=== PATIENT | male | born 1985 | race African-American/Black ===

== ENCOUNTER 2017-04-19 15:11 | Emergency (ER) | payer OTHER ==
[~2017-04-19] VITALS: Ht 172.7 cm; Wt 90.9 kg
[~2017-04-19 15:11] MED LIST: ABILIFY5 MG PO; EFFEXOR 75M75 MG/TAB PO; FOCALIN2.5 MG PO; KLONOPIN 1MG1 MG PO; NITRO-DUR0.4 MG/PAT TD; PRILOSEC 20MG20 MG PO; RITALIN LA10 MG; RITALIN SR20 MG PO
[2017-04-19 15:17] VITALS: BP 133/67; TEMP 99
[2017-04-19] MEDS ORDERED: CONCERTA54 MG PO (15:52)
[2017-04-19 16:26] LABS: BASO % 0.2 % (0.0-2.0); EOS # 0.1 (0.0-0.7); EOS % 1.4 % (0-4.0); GRAN % 80.7 % (42.2-75.2); HEMOGLOBIN 13.9 g/dl (13.5-18.0); LYMPH # 1.2 (1.2-3.4); LYMPH % 11.7 % (20.0-51.0); MEAN CELL VOLUME 76 fl (80.0-100.0); MEAN CORPUSCULAR HEMOGLOBIN 24 pg (27.0-31.0); MEAN CORPUSCULAR HGB CONC 31 g/dl (33.0-37.0); MEAN PLATELET VOLUME 11.5 fl (7.4-10.4); MONO # 0.5 (0.1-0.6); MONO % 5.5 % (1.7-9.3); PLATELET COUNT 273 K/mm3 (130-400); RED BLOOD COUNT 5.92 M/mm3 (4.20-5.60); REDCELL DISTRIBUTION WIDTH-CV 14.4 % (11.5-14.5); WHITE BLOOD COUNT 9.9 K/mm3 (4.8-10.8)
[2017-04-19 16:26] LABS: PH 5 (5-8); SQUAMOUS EPITHELIAL None Seen /hpf; URINE APPEARANCE Clear; URINE BACTERIA None Seen /hpf; URINE BILIRUBIN Negative (NEGATIVE); URINE BLOOD Negative (NEGATIVE); URINE COLOR Yellow; URINE GLUCOSE Negative (NEGATIVE); URINE KETONE 1+ (NEGATIVE); URINE RBC 0-2 /hpf; URINE UROBILINOGEN >=4.0 mg/dL (NEGATIVE)
[2017-04-19 16:31] LABS: ADJUSTED CALCIUM 9.3 mg/dL (8.4-10.2); ALBUMIN 4.1 gm/dL (3.5-5.0); BILIRUBIN,TOTAL 0.6 mg/dL (0.0-1.0); CALCIUM 9.4 mg/dL (8.4-10.2); CREATININE, serum 1.01 mg/dL (0.66-1.25); POTASSIUM 3.8 mmol/L (3.4-5.0); TOTAL PROTEIN 7.2 gm/dL (6.4-8.2)
[2017-04-19] MEDS ORDERED: VOLTAREN 75 DR75 MG PO (17:14)
[2017-04-19 17:39] VITALS: PULSE 75
== END 2017-04-19 17:41 | disposition home or self-care (01) ==
LOC: COL.ER 15:11
PROVIDERS: Emergency Medicine
DX: R10.2 Pelvic and perineal pain (principal); F90.9 Attention-deficit hyperactivity disorder, unspecified type; Z98.890 Other specified postprocedural states
CPT/HCPCS: J0690; J1885; J7030

== ENCOUNTER 2017-12-11 13:35 | Emergency (ER) | payer OTHER ==
[~2017-12-11] VITALS: Ht 175.3 cm; Wt 95.5 kg
[~2017-12-11 13:35] MED LIST changes: +CONCERTA54 MG PO; +VOLTAREN 75 DR75 MG PO
[2017-12-11 13:37] VITALS: TEMP 97.5
[2017-12-11] MEDS ORDERED: DOXYCYCLINE HY100 MG PO (13:50)
[2017-12-11 14:04] LABS: BASO % 0.4 % (0.0-2.0); EOS # 0.1 (0.0-0.7); EOS % 1.6 % (0-4.0); GRAN # 6.1 (1.4-6.5); GRAN % 73.1 % (42.2-75.2); HEMATOCRIT 45.7 % (42.0-52.0); HEMOGLOBIN 14.5 g/dl (13.5-18.0); LYMPH # 1.4 (1.2-3.4); LYMPH % 16.8 % (20.0-51.0); MEAN CELL VOLUME 74 fl (80.0-100.0); MEAN CORPUSCULAR HEMOGLOBIN 23 pg (27.0-31.0); MEAN CORPUSCULAR HGB CONC 32 g/dl (33.0-37.0); MEAN PLATELET VOLUME 10.7 fl (7.4-10.4); MONO # 0.6 (0.1-0.6); PLATELET COUNT 231 K/mm3 (130-400); RED BLOOD COUNT 6.19 M/mm3 (4.20-5.60); REDCELL DISTRIBUTION WIDTH-CV 15.3 % (11.5-14.5)
[2017-12-11 14:17] LABS: ALANINE AMINOTRANSFERASE 50 U/L (21-72); ALBUMIN 4.2 gm/dL (3.5-5.0); ALKALINE PHOSPHATASE 82 U/L (50-136); ANION GAP 11 mmol/L (7-16); AST,SGOT 32 U/L (15-37); BILIRUBIN,TOTAL 0.6 mg/dL (0.0-1.0); BLOOD UREA NITROGEN 14 mg/dL (9-20); CALCIUM 9.6 mg/dL (8.4-10.2); CARBON DIOXIDE 28 mmol/L (22-30); CHLORIDE 103 mmol/L (98-107); CREATININE, serum 1.36 mg/dL (0.66-1.25); GLUCOSE 103 mg/dL (74-106); POTASSIUM 4.6 mmol/L (3.4-5.0); SODIUM 142 mmol/L (137-145); TOTAL PROTEIN 8.4 gm/dL (6.4-8.2)
[2017-12-11 14:23] LABS: ACETAMINOPHEN < 10 ug/mL (10-30); ALCOHOL(ethanol),MEDICAL < 10 mg/dL; SALICYLATE < 1.0 mg/dL
[2017-12-11 14:31] LABS: TRICYCLIC ANTIDEPRESS URINE NEGATIVE
[2017-12-11] MEDS ORDERED: RITALIN SR20 MG PO (16:30)
[2017-12-11] MEDS ORDERED: EFFEXOR 75M75 MG/TAB PO (16:30)
[2017-12-11] MEDS ORDERED: ABILIFY 10MG TA10 MG PO (16:31)
[2017-12-11 16:32] VITALS: BP 106/56; PULSE 72
[2017-12-11] MEDS ORDERED: CEPHALEXIN500 M1 PO (16:33)
== END 2017-12-11 16:49 | disposition home or self-care (01) ==
LOC: COL.ER 13:35
PROVIDERS: Emergency Medicine
DX: F32.9 Major depressive disorder, single episode, unspecified (principal); L02.415 Cutaneous abscess of right lower limb

== ENCOUNTER 2020-11-25 06:54 | Day surgery (SDC) | payer OTHER ==
[2020-11-25] VITALS (10 sets, daily range): BP systolic 91–113; BP diastolic 54–82; PULSE 64–82; TEMP 98.3
[~2020-11-25] VITALS: Ht 175.3 cm; Wt 97.1 kg
[~2020-11-25 06:54] MED LIST changes: +ABILIFY 10MG TA10 MG PO; +CEPHALEXIN500 M1 PO; +DOXYCYCLINE HY100 MG PO
[2020-11-25] MEDS ORDERED: FOCALIN XR40 MG PO (07:21)
[2020-11-25] MEDS ORDERED: FOCALIN10 MG PO (07:22)
[2020-11-25] MEDS ORDERED: EFFEXOR XR75 MG/CAP PO (07:22)
[2020-11-25] MEDS ORDERED: ABILIFY20 MG PO (07:22)
[2020-11-25 08:10] LABS: HEMATOCRIT 45.9 % (42.0-52.0); HEMOGLOBIN 14.2 g/dl (13.5-18.0); MEAN CELL VOLUME 75 fl (80.0-100.0); MEAN CORPUSCULAR HEMOGLOBIN 23 pg (27.0-31.0); MEAN CORPUSCULAR HGB CONC 31 g/dl (33.0-37.0); MEAN PLATELET VOLUME 10.1 fl (7.4-10.4); PLATELET COUNT 263 K/mm3 (130-400); RED BLOOD COUNT 6.14 M/mm3 (4.20-5.60); REDCELL DISTRIBUTION WIDTH-CV 14.7 % (11.5-14.5)
[2020-11-25 08:20] LABS: INR 1.2 (0.8-3.0); PROTHROMBIN TIME 13.3 SECONDS (9.7-12.8)
[2020-11-25 08:21] LABS: CREATININE, serum 1.04 (0.66-1.25)
[2020-11-25 08:23] LABS: PARTIAL THROMBOPLASTIN TIME 38.2 SECONDS (26.0-37.0)
--- NOTE | 2020-11-25 09:30 | NUR ---
SEE MERGE DOCUMENTATION FOR MEDICATION ADMINISTRATION TIMES AND INTRA/POST PROCEDURE SEDATION ASSESSMENTS. RIGHT HAND BARBEAU TEST POSITIVE.
[2020-11-25] MEDS ORDERED: NICODERM C14 MG/PATC TD (10:51)
--- NOTE | 2020-11-25 12:45 | NUR ---
Air has been removed from TR band in 2ml increments with no bleeding or complication. Rt radial puncture site dressed with folded 2x2 gauze and bandaid. Pt is steady on feet. IV DC'd with catheter intact and bleeding controlled at site. DC instructions reviewed with pt and girlfriend, both express understanding. Pt is assisted out to car by wheelchair with belongings.
== END 2020-11-25 12:45 | disposition home or self-care (01) ==
LOC: COL.CAR 06:54
PROVIDERS: Internal Medicine Interventional Cardiology
DX: R07.89 Other chest pain (principal); R94.39 Abnormal result of other cardiovascular function study; R06.02 Shortness of breath; F17.200 Nicotine dependence, unspecified, uncomplicated; Z79.899 Other long term (current) drug therapy; Z20.822 Contact with and (suspected) exposure to COVID-19
CPT/HCPCS: C1769; J1644; J2250; J3010; Q9967